=== PATIENT | male | born 1970 | race Caucasian/White ===

== ENCOUNTER 2016-11-15 21:56 | Inpatient (IN) | payer SELFPAY ==
[2016-11-16] MEDS ORDERED: NS 0.9% 1000 ML* 1,000 ML IV SCH (02:00)
[2016-11-16] MEDS ORDERED: cefTRIAXone VIAL(*) 1,000 MG in NS 0.9% 50 ML* 50 ML IVPB SCH (02:00)
[2016-11-16] MEDS ORDERED: HYDROmorphone* 1 MG/ML 1 ML SYR IV ONE (03:18)
[2016-11-16] MEDS: HYDROmorphone* 1 MG/ML 1 ML SYR ONE ×2 (03:21→05:50)
[2016-11-16] MEDS ORDERED: Vancomycin per Pharmacy* NOTE FOLLOW UP PRN (06:10)
[2016-11-16] MEDS ORDERED: Vancomycin(*) 2,000 MG in NS 0.9% 500 ML BAG* 500 ML IVPB ONE (06:30)
[2016-11-16 07:48] LABS: Albumin 3.3 g/dL (3.2-5.2); BUN/Creatinine Ratio 14.9 (8-20); Calcium 8.4 mg/dL (8.6-10.3); EGFR African American 82.7 (>60); EGFR Non-African American 64.3 (>60); Potassium 3.8 mmol/L (3.5-5.0); Total Bilirubin 1.2 mg/dL (0.2-1.0); Total Protein 6.3 g/dL (6.4-8.9)
[2016-11-16 08:09] LABS: Hematocrit 40 % (42-52); Hemoglobin 13.6 g/dl (14.0-18.0); Mean Corpuscular HGB Conc 34 g/dl (31-36); Mean Corpuscular Hemoglobin 27 pg (27-31); Mean Corpuscular Volume 80 fL (80-94); Mean Platelet Volume 11 um3 (7.4-10.4); Red Blood Count 4.96 10^6/ul (4.0-5.4); Red Cell Distribution Width 14 % (10.5-15); White Blood Count 11.3 10^3/ul (3.5-10.8)
[2016-11-16 08:14] LABS: Add Diff/Slide Review? Slide Review Added; Comments Flag Yes
[2016-11-16] MEDS: Ketorolac INJ* 15 MG/ML 1 ML VIAL IV PUSH PRN ×2 (09:40→22:28)
[2016-11-16 10:28] LABS: Erythrocyte Sed Rate 42 mm/Hr (0-14)
[2016-11-16] MEDS: Acetaminophen TAB* 325 MG PO PRN ×2 (10:49→23:42)
--- NOTE | 2016-11-16 11:23 | HP ---
HISTORY AND PHYSICAL: DATE OF ADMISSION: 11/16/2016. PCP: Dr. Geovanni Pichardo. CHIEF COMPLAINT: Knee pain. HISTORY OF PRESENT ILLNESS: The patient is a 46-year-old, who said 2 days ago, he felt like he had a cold or the flu. He had fevers and chills, vomiting and diarrhea, and body aches. That seemed to get better but then his left knee started hurting the next day yesterday. He could not put any weight on and it was swollen. He denies any trauma to the area. He has never had trouble with this before. Last night, he could not even stand on it because of the pain. Also, on his right foot, he thought he stubbed his toes because his toes were swollen. Then they burst and blood came out, but he noticed no purulent discharge. He finally came to the ED at [place] because of the increased pain in his left knee. He also developed fevers and chills. At the [place] ED, he was evaluated and also had a tap of his left knee which showed yellow fluid with some white pieces in it. PAST MEDICAL HISTORY: Significant only for an SBO, appendectomy, hernia repair , and his right leg was broken with subsequent surgery. MEDICATIONS: He is on no medications. ALLERGIES: He has no known drug allergies. FAMILY HISTORY: His mother is alive at 74, had breast cancer, hypertension, and cellulitis. Father at 82 of diabetes. SOCIAL HISTORY: No tobacco, alcohol, or recreational drug use. 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 He is not . He has 2 children. His children, Zoya and Quoc Kent, are his healthcare proxies. REVIEW OF SYSTEMS: A 14-point review of systems was completed with the patient. All pertinent positives and negatives are in the history of present illness, otherwise is negative. PHYSICAL EXAMINATION GENERAL: Pleasant gentleman, lying in bed, in no acute distress. VITAL SIGNS: Heart rate is 76 beats per minute, temperature 97.9 degrees, pulse ox 97%, and blood pressure 149/90. HEENT: Normocephalic, atraumatic. Pupils equal, round, and reactive to light. Moist mucous membranes. Poor dentition. NECK: Supple. No JVD, bruits, palpable thyroid, or lymphadenopathy. CHEST: Clear to auscultation and percussion bilaterally. CARDIOVASCULAR: S1 and S2 appreciated. ABDOMEN: Positive bowel sounds in all 4 quadrants. Soft, nontender, nondistended. EXTREMITIES: No cyanosis or clubbing. He has got bilateral edema. His left knee is swollen, extraordinarily tender, and warm, but no erythema. His right lower extremity from the lower leg to the foot is swollen, erythematous, and tender, and warm. NEURO: He is alert and oriented x3. He moves all extremities. SKIN: Other than the aforementioned problems in his legs, no distinct rashes or abnormalities. DIAGNOSTIC STUDIES/LAB DATA: Chemistry: Sodium is 134, potassium 3.5, chloride 97, CO2 24, BUN 21, creatinine 1.5, glucose is 119. Alk phos is 83. White count 9.69, hemoglobin 15.1, hematocrit 43.1, platelets are 115. Lyme titer is pending. Results of left knee arthrocentesis to be followed upon. ASSESSMENT AND PLAN: 1. Sepsis secondary to possibly septic arthritis or barely cellulitis. The patient received Rocephin in the ER at [place]. We will continue, but we will add vancomycin too. Await results of tap at [place]. Tylenol and/or Dilaudid for pain. He may require Infectious Disease and/or Ortho input as well. I will order an erythrocyte sedimentation rate. 2. FEN. Regular diet. 3. DVT prophylaxis. Heparin subcu. 4. The patient is a full code. TIME SPENT: Over 75 minutes was spent on this H and P; more than 40 minutes of which was spent in direct [id number] contact with the patient in evaluation, physical exam, counseling, and coordination of care. CC: Dr. Geovanni Pichadro* [id number]/[facility] #: [id number] [facility]
[2016-11-16] MEDS ORDERED: EPINEPHrine AMP 1 MG/ML ONE (13:01)
[2016-11-16] MEDS ORDERED: Bupivacaine 0.5% W/EPI SDV* 30 ML VIAL ONE (13:01)
[2016-11-16] MEDS ORDERED: Heparin VIAL(*) 5000 UNITS/ML VIAL (FIVE THOUSAND) SUBCUT SCH (14:00)
--- NOTE | 2016-11-16 14:50 | PN ---
Subjective Date of Service: 11/16/16 Interval History: HOSPITALIST PROGRESS NOTE Patient seen and examined at bedside. He feels better today, but still has severe pain on his left knee. Right foot still swollen and red, but less painful. Family History: Unchanged from Admission Social History: Unchanged from Admission Past Medical History: Unchanged from Admission Objective Active Medications: Acetaminophen (Tylenol Tab*) 650 mg PO Q4H PRN PRN Reason: Pain or fever Last Admin: 11/16/16 10:49 Dose: 650 mg Ceftriaxone Sodium 1,000 mg/ (Sodium Chloride) 50 mls @ 200 mls/hr IVPB 2000 BRUNO Sodium Chloride (Ns 0.9% 1000 Ml*) 1,000 mls @ 150 mls/hr IV PER RATE BRUNO Vancomycin HCl 1,000 mg/ (Sodium Chloride) 250 mls @ 166.667 mls/hr IVPB Q6H BRUNO Ketorolac Tromethamine (Toradol Inj*) 15 mg IV PUSH Q6H PRN PRN Reason: PAIN Last Admin: 11/16/16 09:40 Dose: 15 mg Pharmacy Consult (Vancomycin Per Pharmacy*) 1 note FOLLOW UP . PRN PRN Reason: PER PROTOCOL Pharmacy Profile Note (Vancomycin Trough Check) 1 note FOLLOW UP 1000 ONE Stop: 11/17/16 10:01 Vital Signs 11/16/16 11/16/16 11/16/16 07:24 08:00 11:23 Temperature 98.8 F 98.8 F Pulse Rate 79 73 Respiratory 18 18 18 Rate Blood Pressure 139/80 127/72 (mmHg) O2 Sat by Pulse 99 96 Oximetry Oxygen Devices in Use Now: None Appearance: Pleasant middle aged male sitting up in a recliner in [facility]. Eyes: No Scleral Icterus Ears/Nose/Mouth/Throat: Mucous Membranes Moist Neck: Trachea Midline Respiratory: Symmetrical Chest Expansion and Respiratory Effort, Clear to Auscultation Cardiovascular: NL Sounds; No Murmurs; No JVD, RRR Abdominal: NL Sounds; No Tenderness; No Distention Extremities: - - Right foot edema and ertyhema reaching up to ankle are, where he has an old surgical scar. Neurological: Alert and Oriented x 3, NL Muscle Strength and Tone Lines/Tubes/Other Access: Clean, Dry and Intact Peripheral IV Nutrition: Taking PO's Result Diagrams: 11/16/16 05:14 04/20/17 05:14 Assess/Plan/Problems-Billing Assessment: Mr. Kent is a 46yo M with PMH of obesity who presented to ED at [facility] with c/o right foot/left knee edema and pain, found to have right foot cellulitis and possible left knee septic arthritis. - Patient Problems (1) Sepsis Comment: - Met sepsis criteria with fever and tachycardia. - Source is right foot cellulitis and possible left knee septic arthritis. (2) Arthritis of left knee Comment: - Unfortunately, knee fluid clotted, so lab cannot perform cell count, but smear showed neutrophil predominance and Gram positive cocci. - Continue Ceftriaxone and Vancomycin. - Case d/w Ortho (Dr. Trejo) - plan to take to OR later today. - Patient has no comorbidities, no c/o chest pain or dyspnea. He's medically optimized for procedure. (3) Cellulitis of right foot Comment: - Continue Vanco and Ceftriaxone. - ID consult requested. (4) Hyperglycemia Comment: - Check A1c. (5) DVT prophylaxis Comment: - SQ heparin on hold for surgery later today. (6) Full code status Status and Disposition: Inpatient.
--- NOTE | 2016-11-16 15:31 | CONS ---
CONSULTATION REPORT: DATE OF CONSULT: 11/16/16 CONSULTING SERVICE: Infectious Disease. REQUESTING PHYSICIAN: Dr. Boo. REASON FOR CONSULT: Right foot cellulitis, left knee effusion, and pain. IMPRESSION: 1. Right foot cellulitis arising from the second toe, no recent injury, and there is no wound there. It was up through the lower leg and is in fact improved since starting IV antibiotics last night. There is underlying right ankle fixation hardware but there is no ulceration or wound associated with the ankle and he has not had recurrent infections of the ankle in the past, so I think it is unlikely the hardware is involved. This is likely a streptococcal infection, though staphylococcus is possible too. 2. Left knee effusion, severe pain with weightbearing and range of motion. Differential diagnosis includes hematogenous spread and seeding and subsequent septic joint versus gout or pseudogout as suggested by Dr. Boo. He has had no recent knee trauma or falls. 3. Morbid obesity. 4. Thrombocytopenia. 5. Anemia, mild. RECOMMENDATION: Continue vancomycin goal trough 15 to 20 and ceftriaxone which we will increase to 2 g a day given his size. He has had aspiration of the left knee and the fluid parameters are all pending. If there is evidence of crystal disease, he may need a steroid injection. If there is evidence of infection or very high white cell count without crystals, we would need to have orthopedic exam for consideration of I and D. HISTORY OF PRESENT ILLNESS: This is a 46-year-old man admitted with right foot infection and left knee pain. He was well until earlier in the week. He developed fevers, chills, sweats, and loss of appetite, and then started to get pain in his right second toe, which swelled and spread up the foot and then started to include the third toe, it spread up through the mid calf and a day or so later, he developed left knee pain which over the last 3 days had gotten much worse. He stayed to the point that is very painful to put weight on it, so he went to the ER last night at [place]. He was started on ceftriaxone. Because of concern for septic joint, he was transferred here and the knee was aspirated before he left and the fluid has made it, so here now is being analyzed by the lab which is still pending. He has had no fevers here and he is hemodynamically stable. He says the swelling, redness, and pain in the right foot is getting better. The left knee pain is unchanged, though hurts to bear weight or flex or extend his knee, though it was a little more comfortable extended. There is no pain going up his calf. He still feels sweats and decreased appetite. He has no back pain and no other joints are bothering. He has no hardware present other than the right ankle fixation hardware. About 2 years ago, he had cellulitis of the right foot and no other joint or skin infections. PAST MEDICAL HISTORY: 1. Right ankle tibia-fibula fracture, status post open reduction internal fixation in the distant past. 2. History of a right foot cellulitis. 3. Obesity. MEDICATIONS: 1. Tylenol. 2. Dilaudid. 3. Ketorolac. 4. Heparin subcutaneous injection. 5. Vancomycin. 6. Ceftriaxone 1 g daily. ALLERGIES: No known drug allergies. FAMILY HISTORY: No recurrent infections. SOCIAL HISTORY: He lives in [facility]. 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 No travel, no sick contacts, no trauma at work. REVIEW OF SYSTEMS: Full review of systems was negative except as noted above. PHYSICAL EXAM: Vital Signs: Temperature is 37, heart rate 80, respiratory rate 18, blood pressure 140/80, O2 sat 99% on room air. General: He is awake, non- distressed. Neurologic: Oriented x3. Follows all commands. Moves all of his extremities. HEENT: There is no conjunctival hemorrhage. Oropharynx without lesions. Neck is supple without nuchal rigidity. Lymph Nodes: There is no cervical, supraclavicular, inguinal, axillary, or epitrochlear lymphadenopathy. Heart has regular rate and rhythm without murmurs, rubs, or gallops. Lungs are clear to auscultation bilaterally. Abdomen: Soft, nontender, nondistended. Skin: There is no splinter hemorrhage. The right foot , there is faint edema from the ankle down through to the toes with edema of the second, third toes through the foot and lower leg. There is no tenderness, crepitus, or fluctuance. There is no wound. Musculoskeletal: Left knee, there is a large effusion. There is tenderness to superficial palpation. There is warmth. There is no erythema. There is decreased range of motion due to pain. There is no spine tenderness to palpation or other joint synovitis. DIAGNOSTIC STUDIES/LAB DATA: White blood cell count 11, hemoglobin 13, platelets 94. Creatinine is 1.2. ALT is 27, bilirubin is 1.2. Please see impressions and recommendations as outlined above which I have discussed with Dr. Boo. Thanks for asking me to see Donte in consultation. [id number]/[facility] #: [id number] MTDD
[2016-11-16] MEDS: Vancomycin(*) 1,000 MG in NS 0.9% 250 ML* 250 ML IVPB SCH ×2 (16:15→23:15)
[2016-11-16] MEDS ORDERED: KETAMINE HCL* 50 MG/ML 10 ML VIAL ONE (16:31)
[2016-11-16] MEDS ORDERED: fentaNYL* 50 MCG/ML 5 ML VIAL (250 MCG VIAL) ONE (16:31)
[2016-11-16] MEDS ORDERED: Midazolam* 1 MG/ML 5 ML VIAL (5 MG) ONE (16:31)
[2016-11-16] MEDS ORDERED: fentaNYL* 50 MCG/ML 2 ML VIAL (100 MCG VIAL) IV PRN (17:05)
[2016-11-16] MEDS ORDERED: oxyCODONE/Acetamin 5/325 MG* TAB PO PRN (17:05)
[2016-11-16] MEDS ORDERED: Morphine INJ* 2 MG/ML 1 ML SYRINGE IV PRN (17:05)
[2016-11-16] MEDS ORDERED: PROCHLORPERAZINE INJ 5 MG/ML 2 ML VIAL IV PRN (17:05)
[2016-11-16] MEDS ORDERED: Propofol* 10 MG/ML 20 ML BTL IV PUSH ONE (17:38)
[2016-11-16] MEDS ORDERED: Lidocaine 2% PF* 10 ML AMP ONE (17:38)
[2016-11-16] MEDS ORDERED: Phenylephrine INJ* 10 MG/ML 1 ML VIAL (10 MG) ONE (17:38)
[2016-11-16] MEDS ORDERED: Succinylcholine* 20 MG/ML 10 ML VIAL ONE (17:38)
[2016-11-16] MEDS ORDERED: PROCHLORPERAZINE INJ 5 MG/ML 2 ML VIAL ONE (17:38)
[2016-11-16] MEDS ORDERED: Ondansetron INJ* 2 MG/ML VIAL ONE (17:38)
[2016-11-16] MEDS: NS 0.9% 1000 ML* 1,000 ML IV SCH (22:18)
[2016-11-16] MEDS: cefTRIAXone VIAL(*) 1,000 MG in NS 0.9% 50 ML* 50 ML IVPB SCH (22:32)
[2016-11-17] MEDS: Vancomycin(*) 1,000 MG in NS 0.9% 250 ML* 250 ML IVPB SCH ×2 (04:13→10:30)
[2016-11-17 06:00] LABS: Comments Flag Yes; Hematocrit 37 % (42-52); Hemoglobin 12.5 g/dl (14.0-18.0); Mean Corpuscular HGB Conc 33 g/dl (31-36); Mean Corpuscular Hemoglobin 27 pg (27-31); Mean Corpuscular Volume 81 fL (80-94); Mean Platelet Volume 10 um3 (7.4-10.4); Red Blood Count 4.58 10^6/ul (4.0-5.4); Red Cell Distribution Width 14 % (10.5-15); White Blood Count 10.6 10^3/ul (3.5-10.8)
[2016-11-17 06:01] LABS: Add Diff/Slide Review? Slide Review Added
[2016-11-17 06:19] LABS: BUN/Creatinine Ratio 15.8 (8-20); C Reactive Protein 227.78 mg/L (< 5.00); EGFR African American 83.5 (>60); EGFR Non-African American 64.9 (>60); Potassium 3.6 mmol/L (3.5-5.0)
[2016-11-17 06:39] LABS: Erythrocyte Sed Rate 65 mm/Hr (0-14)
[2016-11-17] MEDS: Ketorolac INJ* 15 MG/ML 1 ML VIAL IV PUSH PRN ×2 (08:16→17:18)
[2016-11-17] MEDS: NS 0.9% 1000 ML* 1,000 ML IV SCH ×2 (08:31→17:09)
--- NOTE | 2016-11-17 09:00 | OP ---
OPERATIVE REPORT: DATE OF OPERATION: 11/16/16 - inpatient, MED 413-02 DATE OF : 68 SURGEON: Geovanni Trejo MD CHIEF GROWTH OFFICER: CHAUNCEY Enrique ANESTHESIOLOGIST: Dr. Asif Drake. ANESTHESIA: General anesthesia, local anesthesia. PRE-OP DIAGNOSIS: Left knee joint infection. POST-OP DIAGNOSES: 1. Left knee joint infection. 2. Medial meniscal tear. OPERATIVE PROCEDURES: 1. Arthroscopic irrigation and debridement, left knee. 2. Arthroscopic synovectomy, complete, left knee. 3. Left knee arthroscopic partial medial meniscectomy. ANTIBIOSIS: Vancomycin 1 g, was on schedule, just prior to procedure. The patient also receiving ceftriaxone, but not immediately perioperatively. IV FLUIDS: See Anesthesia note. COMPLICATIONS: None. ESTIMATED BLOOD LOSS: Minimal. TOURNIQUET TIME: 67 minutes at 300 mmHg. SPECIMEN: Aerobic, anaerobic culture. IMPLANTS: 1 SHERRY tube, 7-Greenlandic, 7 mm. 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 The patient states that he developed some swelling, erythema, tenderness, and pain about the right second toe 3 days prior to the procedure on 11/13/16. That pain, swelling, and erythema in turn spread to the third and fourth toes. He noted some erythema and swelling about the foot and distal lower leg as well. On Sunday, approximately 48 hours prior to the operative procedure or just more than 48 hours, the patient noted some left knee pain. The patient had no prior history of left knee pain and the left knee pain was quite debilitating. His described him crouched over in a position in pain. The patient had significant pain with weightbearing and moving the left knee. It was much worse than any pain he had felt with fractures in the past. There was no specific trigger injury to start the pain. The patient went to the emergency department at [facility] where his left knee was aspirated yesterday, 11/15/16. I was consulted by the hospitalist service this afternoon. They told me about the aspiration at [facility] and we tracked down the results of that. The results were the Gram stain demonstrating gram-positive cocci. Due to some problems with the sample, a cell count was not established, but the neutrophil percentage was 92%. Crystals were negative. From clinic, I booked the patient for an operative arthroscopic irrigation and debridement of left knee for presumptive left knee joint infection. The patient had been started by the hospitalist service on vancomycin and ceftriaxone for his cellulitis and presumptive left knee joint infection. They stated that the appearance of the right foot and ankle cellulitis improved on these antimicrobials. When I examined the patient preoperatively, he had a significant effusion left knee. An arc of range of motion of only 15 degrees or 10 degrees provoked significant pain. Neurovascularly intact distally. Contralateral right lower extremity did show some swelling of the second, third, and fourth toes and some erythema and tenderness of the foot. Less so of the ankle and distal lower leg , as if the erythema had retreated from those parts of his lower extremity. The patient opted for surgical management. DESCRIPTION OF PROCEDURE: Preoperative written consent. Operative extremity was marked in preoperative holding. The patient was taken back to the operating room, placed supine on operating table. The patient was intubated. A left hemipelvis bump was placed and a lateral post was placed. Foot post was placed to keep the knee at 90 degrees of flexion as needed. The foot of the bed remained elevated. The right lower extremity was prepped and draped. Surgical time-out was performed. Esmarch was applied and the tourniquet was elevated to 300 mmHg. Anterolateral knee arthroscopy portal was established under direct visualization. Trocar was removed from cannula and much yellow purulent-looking material emanated from the knee. I took cultures of this fluid and sent them for analysis. I then entered an arthroscope and commenced a diagnostic arthroscopy. There was synovitis and pillowy synovium about the suprapatellar space, certainly more than seen in an uninfected knee. Articular cartilage and the patellofemoral compartment was remarkable for fraying of the undersurface of the patella. Under direct visualization, I established an anteromedial knee arthroscopy portal. I entered an arthroscopic shaver and then a Vapor to debride extensively synovium throughout the suprapatellar pouch. Also went into the gutters a bit at this time, medial and lateral. Then I arthroscoped the knee in 45 degrees of flexion. This enabled me to get down into the intercondylar notch and visualized a significant amount of synovitic tissue about it anteriorly. Arthroscopic shaver was used. As I had above, I worked through first the anteromedial and then through the anterolateral compartment to debride this synovitis. ACL and PCL were intact. Debrided the ligamentum mucosum and synovitis anterior to them. I debrided significant anterior tissue, so that afterwards I could well visualize the anterior horns of the medial and lateral menisci. I visualized the medial compartment. There were some grade 2 and 3 changes throughout the medial compartment. A large radial tear in the body of the medial meniscus was well visualized and was debrided back to a stable rim. Much fluid pumped through the leg and much shaving done to improve the quality of the image part of the procedure. I then moved to the lateral compartment that was remarkable for a small grade 4 punctate chondral lesion about the lateral femoral condyle anteriorly. No lateral meniscal tear. I returned to the suprapatellar pouch and debrided through both the anteromedial and anterolateral portals and debrided down into the gutters. Almost 13 L had been cycled through the knee, placed a SHERRY drain, a 7 mm 7-Greenlandic through a superolateral portal. Of note, I had created a second anteromedial portal while arthroscoping the knee. Attached SHERRY drain. Sutured it in place with a 4-0 monofilament permanent suture. I closed the 3 arthroscopy skin incision portals with [id number] stitches using 4-0 monofilament permanent suture; 4x4's, ABD, sterile Webril, and 2 Scott bandages. Tourniquet was elevated. It should be noted a total of 13 L of fluid were passed through the knee during this procedure. DISPOSITION: The patient will be returned to the floor and to the hospitalist service. He will be kept on vancomycin and ceftriaxone until Gram stains, cultures, and cultural sensitivities allows to narrow the antibiotic activity. The patient is on heparin subcu for DVT prophylaxis and is receiving appropriate pain control. Orthopedic service will follow him, remove SHERRY drain when output declines and will use clinical exam, history, and any relative lab work to determine if a second knee arthroscopy is required. [id number]/[facility] #: [id number] MTDD
[2016-11-17] MEDS ORDERED: Vancomycin Trough Check NOTE FOLLOW UP ONE (10:00)
--- NOTE | 2016-11-17 14:59 | PN ---
Subjective Date of Service: 11/17/16 Interval History: HOSPITALIST PROGRESS NOTE Patient seen and examined at bedside. He feels very tired today as he did not have a good night of sleep, but states his knee pain is much improved. Denies nausea or vomiting. Family History: Unchanged from Admission Social History: Unchanged from Admission Past Medical History: Unchanged from Admission Objective Active Medications: Acetaminophen (Tylenol Tab*) 650 mg PO Q4H PRN PRN Reason: Pain or fever Last Admin: 11/16/16 23:42 Dose: 650 mg Ceftriaxone Sodium 1,000 mg/ (Sodium Chloride) 50 mls @ 200 mls/hr IVPB 2000 [facility] Last Admin: 11/16/16 22:32 Dose: 200 mls/hr Sodium Chloride (Ns 0.9% 1000 Ml*) 1,000 mls @ 150 mls/hr IV PER RATE [facility] Last Admin: 11/17/16 08:31 Dose: 150 mls/hr Ketorolac Tromethamine (Toradol Inj*) 15 mg IV PUSH Q6H PRN PRN Reason: PAIN Last Admin: 11/17/16 08:16 Dose: 15 mg Vital Signs 11/16/16 11/17/16 11/17/16 23:40 03:10 07:37 Temperature 99.9 F 98.0 F 98.7 F Pulse Rate 80 69 78 Respiratory 16 18 16 Rate Blood Pressure 123/74 120/67 128/69 (mmHg) O2 Sat by Pulse 96 100 99 Oximetry Oxygen Devices in Use Now: None Appearance: Middle aged male sitting up in a recliner in [facility]. Eyes: No Scleral Icterus Ears/Nose/Mouth/Throat: Mucous Membranes Moist Neck: Trachea Midline Respiratory: Symmetrical Chest Expansion and Respiratory Effort, Clear to Auscultation Cardiovascular: NL Sounds; No Murmurs; No JVD, RRR Abdominal: NL Sounds; No Tenderness; No Distention Extremities: - - Right food edema and erythema are much improved today. Left leg is Scott wrapped from ankle to thigh, with cryo unit over his knee. Neurological: Alert and Oriented x 3, NL Muscle Strength and Tone Lines/Tubes/Other Access: Clean, Dry and Intact Peripheral IV Nutrition: Taking PO's Result Diagrams: 11/17/16 05:48 11/17/16 05:48 Assess/Plan/Problems-Billing Assessment: Mr. Kent is a 46yo M with PMH of obesity who presented to ED at [facility] with c/o right foot/left knee edema and pain, found to have right foot cellulitis and possible left knee septic arthritis. - Patient Problems (1) Sepsis Comment: - Met sepsis criteria with fever and tachycardia. - Source is right foot cellulitis and possible left knee septic arthritis. (2) Arthritis of left knee Comment: - S/p left knee wash out with Dr. Trejo on 11/16/16. - Continue Ceftriaxone and Vancomycin. - Follow synovial fluid cultures. (3) Cellulitis of right foot Comment: - Continue Vanco and Ceftriaxone. - ID consult appreciated. (4) Hyperglycemia Comment: - A1c is 5.7. (5) DVT prophylaxis Comment: - SQ heparin. (6) Full code status Status and Disposition: Inpatient.
--- NOTE | 2016-11-17 15:29 | PN ---
Progress Note - Progress Note SOAP: Subjective: DOS: 11/17/16 CC: septic knee HPI: 46 year old man with right foot cellulitis and left knee severe pain, s/p arthroscopic I&D. Pain 10, improved overall. Fever resolved. Objective: [] Vital Signs Temp 37.1 C 11/17/16 07:37 Pulse 78 11/17/16 07:37 Resp 16 11/17/16 08:00 BP 128/69 11/17/16 07:37 Pulse Ox 99 11/17/16 07:37 Intake & Output 11/16/16 11/17/16 11/17/16 18:59 06:59 18:59 Intake Total 2954 059 9841 Output Total 200 70 550 Balance 2600 143 9656 Intake: IV Fluids 900 595 920 NS (0.9%) 595 920 lr 900 IVPB 321 NS (0.9%) 321 Oral 360 0 360 Output: SHERRY #1 70 50 Urine 200 0 500 Other: Estimated Void Medium # Bowel Movements 0 0 # Voids 1 1 Gen:Awake, no distress Heart:RRR no murmur MSK: R foot mild erythema, no fluctuance; 2 and 3 toe edema, no wound Left knee wrapped Laboratory Results - last 24 hr 11/16/16 11/17/16 11/17/16 05:14 05:48 05:48 WBC 10.6 RBC 4.58 Hgb 12.5 L Hct 37 L MCV 81 MCH 27 MCHC 33 RDW 14 Plt Count 93 L MPV 10 Neut % (Auto) 78.3 Lymph % (Auto) 9.8 L Esmeralda % (Auto) 11.4 H Eos % (Auto) 0.1 Baso % (Auto) 0.4 Absolute Neuts (auto) 8.3 H Absolute Lymphs (auto) 1.0 Absolute Monos (auto) 1.2 H Absolute Eos (auto) 0 Absolute Basos (auto) 0 Absolute Nucleated RBC 0.01 Nucleated RBC % 0.1 ESR 65 H Hem Pathologist Commnt Sodium 136 Potassium 3.6 Chloride 105 Carbon Dioxide 28 Anion Gap 3 BUN 19 Creatinine 1.20 H Est GFR ( Amer) 83.5 Est GFR (Non-Af Amer) 64.9 BUN/Creatinine Ratio 15.8 Glucose 102 H Hemoglobin A1c 5.7 Calcium 8.0 L C-Reactive Protein 227.78 H Vancomycin Trough 11/17/16 09:23 WBC RBC Hgb Hct MCV MCH MCHC RDW Plt Count MPV Neut % (Auto) Lymph % (Auto) Esmeralda % (Auto) Eos % (Auto) Baso % (Auto) Absolute Neuts (auto) Absolute Lymphs (auto) Absolute Monos (auto) Absolute Eos (auto) Absolute Basos (auto) Absolute Nucleated RBC Nucleated RBC % ESR Hem Pathologist Commnt Sodium Potassium Chloride Carbon Dioxide Anion Gap BUN Creatinine Est GFR ( Amer) Est GFR (Non-Af Amer) BUN/Creatinine Ratio Glucose Hemoglobin A1c Calcium C-Reactive Protein Vancomycin Trough 11.5 Assessment: 1. Grp G Strep septic left knee, BC neg but due to hematogenous spread from his right foot cellulitis which is improving Plan: 1 ceftriaxone 2 gm daily, roverto crespo (ordered), we discussed 4 weeks IV abx and will work on arranging that in setting of no health insurance. Discussed with Dr Chaves
[2016-11-17] MEDS: cefTRIAXone VIAL(*) 1,000 MG in NS 0.9% 50 ML* 50 ML IVPB SCH (19:40)
[2016-11-17] MEDS: Heparin VIAL(*) 5000 UNITS/ML VIAL (FIVE THOUSAND) SUBCUT SCH (21:23)
--- NOTE | 2016-11-17 21:23 | PN ---
Progress Note - Progress Note SOAP: Subjective: Doing well. Greatly decreased pain in L knee. " Pain pill" once every 10 hours. PT did not work with the patient today. Patient reiterates that this L knee pain started Sunday afternoon, just over 48 hours prior to his arthroscopic I&D. Per Dr. Ackerman, L knee aspirate from [place] grew Group G Strep. Objective: LLE: - GISELLA bandage, SHERRY drain, NVID - Pain with PROM L knee more than 10-15 degrees Microbiology 11/16/16 17:46 Knee Left Skin and Soft Tissue MRSA/MSSA (PCR - Final 11/16/16 17:46 Knee Left Gram Stain - Final Mrsa Negative S.aureus Negative Selected Entries 11/17/16 19:54 Temperature 99.2 F Pulse Rate 80 Respiratory 24 Rate O2 Sat by Pulse 94 Oximetry Laboratory Tests 11/16/16 11/17/16 11/17/16 05:14 05:48 05:48 WBC 11.3 H 10.6 ESR 42 H 65 H C-Reactive Protein 227.78 H Assessment: POD 1 L knee arthroscopic I&D for Group G strep infection of L knee spread from R foot & ankle cellulitus Plan: - Ceftriaxone IV per ID - Physical therapy with ROM and PT, WBAT LLE - NPO after midnight. I will examine the patient in the AM. If his knee is not improving, I would consider a 2nd I&D
[2016-11-18] MEDS: NS 0.9% 1000 ML* 1,000 ML IV SCH ×2 (00:02→06:26)
[2016-11-18] MEDS: Ketorolac INJ* 15 MG/ML 1 ML VIAL IV PUSH PRN ×3 (01:43→20:06)
[2016-11-18] MEDS: Heparin VIAL(*) 5000 UNITS/ML VIAL (FIVE THOUSAND) SUBCUT SCH ×3 (06:01→23:16)
[2016-11-18 07:49] LABS: Hematocrit 37 % (42-52); Hemoglobin 12.4 g/dl (14.0-18.0); Mean Corpuscular HGB Conc 34 g/dl (31-36); Mean Corpuscular Hemoglobin 28 pg (27-31); Mean Corpuscular Volume 82 fL (80-94); Mean Platelet Volume 10 um3 (7.4-10.4); Red Blood Count 4.51 10^6/ul (4.0-5.4); Red Cell Distribution Width 14 % (10.5-15); White Blood Count 8.9 10^3/ul (3.5-10.8)
[2016-11-18 07:59] LABS: C Reactive Protein 182.73 mg/L (< 5.00); Calcium 8.1 mg/dL (8.6-10.3); EGFR African American 95.3 (>60); EGFR Non-African American 74.1 (>60); Potassium 3.9 mmol/L (3.5-5.0)
--- NOTE | 2016-11-18 09:37 | PN ---
Progress Note - Progress Note SOAP: Subjective: Pt. OOB to chair with continued complaints of right knee pain Objective: Vital Signs Temp Pulse Resp BP Pulse Ox 97.3 F 80 16 142/91 94 11/18/16 07:30 11/18/16 07:30 11/18/16 07:30 11/18/16 07:30 11/18/16 07:30 Laboratory Last Values WBC 8.9 10^3/ul (3.5-10.8) 11/18/16 07:15 RBC 4.51 10^6/ul (4.0-5.4) 11/18/16 07:15 Hgb 12.4 g/dl (14.0-18.0) L 11/18/16 07:15 Hct 37 % (42-52) L 11/18/16 07:15 MCV 82 fL (80-94) 11/18/16 07:15 MCH 28 pg (27-31) 11/18/16 07:15 MCHC 34 g/dl (31-36) 11/18/16 07:15 RDW 14 % (10.5-15) 11/18/16 07:15 Plt Count 135 10^3/ul (150-450) L 11/18/16 07:15 MPV 10 um3 (7.4-10.4) 11/18/16 07:15 Neut % (Auto) 77.3 % (38-83) 11/18/16 07:15 Lymph % (Auto) 11.7 % (25-47) L 11/18/16 07:15 Wirt % (Auto) 10.4 % (1-9) H 11/18/16 07:15 Eos % (Auto) 0.4 % (0-6) 11/18/16 07:15 Baso % (Auto) 0.2 % (0-2) 11/18/16 07:15 Absolute Neuts (auto) 6.9 10^3/ul (1.5-7.7) 11/18/16 07:15 Absolute Lymphs (auto) 1.0 10^3/ul (1.0-4.8) 11/18/16 07:15 Absolute Monos (auto) 0.9 10^3/ul (0-0.8) H 11/18/16 07:15 Absolute Eos (auto) 0 10^3/ul (0-0.6) 11/18/16 07:15 Absolute Basos (auto) 0 10^3/ul (0-0.2) 11/18/16 07:15 Absolute Nucleated RBC 0 10^3/ul 11/18/16 07:15 Nucleated RBC % 0 11/18/16 07:15 ESR 65 mm/Hr (0-14) H 11/17/16 05:48 Hem Pathologist Commnt 11/17/16 05:48 INR (Anticoag Therapy) 1.10 (0.89-1.11) 11/16/16 05:14 APTT 30.2 seconds (26.0-36.3) 11/16/16 05:14 Sodium 138 mmol/L (133-145) 11/18/16 07:15 Potassium 3.9 mmol/L (3.5-5.0) 11/18/16 07:15 Chloride 108 mmol/L (101-111) 11/18/16 07:15 Carbon Dioxide 26 mmol/L (22-32) 11/18/16 07:15 Anion Gap 4 mmol/L (2-11) 11/18/16 07:15 BUN 16 mg/dL (6-24) 11/18/16 07:15 Creatinine 1.07 mg/dL (0.67-1.17) 11/18/16 07:15 Est GFR ( Amer) 95.3 (>60) 11/18/16 07:15 Est GFR (Non-Af Amer) 74.1 (>60) 11/18/16 07:15 BUN/Creatinine Ratio 15.0 (8-20) 11/18/16 07:15 Glucose 96 mg/dL (70-100) 11/18/16 07:15 Hemoglobin A1c 5.7 % (Less than 6.0) 11/16/16 05:14 Calcium 8.1 mg/dL (8.6-10.3) L 11/18/16 07:15 Total Bilirubin 1.20 mg/dL (0.2-1.0) H 11/16/16 05:14 AST 38 U/L (13-39) 11/16/16 05:14 ALT 27 U/L (7-52) 11/16/16 05:14 Alkaline Phosphatase 65 U/L (34-104) 11/16/16 05:14 C-Reactive Protein 182.73 mg/L (< 5.00) H 11/18/16 07:15 Total Protein 6.3 g/dL (6.4-8.9) L 11/16/16 05:14 Albumin 3.3 g/dL (3.2-5.2) 11/16/16 05:14 Globulin 3.0 g/dL (2-4) 11/16/16 05:14 Albumin/Globulin Ratio 1.1 (1-3) 11/16/16 05:14 Vancomycin Trough 11.5 mcg/mL 11/17/16 09:23 incision: c/d; drain intact with about 100cc PE:NVI Assessment: s/p arthroscopic I&D right knee Plan: 1) NPO- OR today for 2nd arthroscopic I &D 2) continue DVT prophylaxis 3) PT/OT-WBAT 4) Continue IV Abx per ID 5) hospitalist co-managing <Magnolia Gomez - Last Filed: 11/18/16 09:35> - Progress Note SOAP: Subjective: Pain is much improved compared with pre-op, but he still has L knee pain while resting in bed or in a chair. Pain is comparable to the level Sunday, when the symptoms started. Objective: LLE: - Inc c/d/i - Drain in place - Mild soft tissue swelling about knee, no severe effusion - Although patient was very slowly able to AROM 10-70, PROM of a 20-30 degree arc caused much pain SHERRY drain: 110 cc/ 24 hours serosanguinous Selected Entries 11/18/16 07:30 Temperature 97.3 F Pulse Rate 80 Respiratory 16 Rate Blood Pressure 142/91 (mmHg) O2 Sat by Pulse 94 Oximetry Laboratory Tests 11/17/16 11/18/16 11/18/16 05:48 07:15 07:15 WBC 8.9 C-Reactive Protein 227.78 H 182.73 H Assessment: POD 2 arthroscopic I&D L knee for Group G Strep knee joint infection, seeded from R foot & ankle cellulitis Plan: - To the OR today for repeat arthroscopic L knee I&D. 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 <Geovanni Trejo - Last Filed: 11/18/16 10:35>
[2016-11-18] MEDS ORDERED: ceFAZolin 1 GM in Dextrose (*) 0 GM/0 ML BAG IVPB ONE (10:43)
[2016-11-18] MEDS ORDERED: ceFAZolin 2 GM PREMIX(*) 2 GM/50 ML BAG IVPB ONE (10:46)
[2016-11-18] MEDS ORDERED: HYDROmorphone* 1 MG/ML 1 ML SYR ONE ×3 (10:49→13:20)
[2016-11-18] MEDS ORDERED: Midazolam* 1 MG/ML 2 ML VIAL (2 MG) ONE (10:49)
[2016-11-18] MEDS ORDERED: fentaNYL* 50 MCG/ML 2 ML VIAL (100 MCG VIAL) ONE ×2 (10:49→11:12)
[2016-11-18] MEDS ORDERED: Ketorolac INJ* 30 MG/ML 1 ML VIAL ONE (10:54)
[2016-11-18] MEDS ORDERED: Ondansetron INJ* 2 MG/ML VIAL ONE (10:54)
[2016-11-18] MEDS ORDERED: Propofol* 10 MG/ML 20 ML BTL IV PUSH ONE ×2 (10:54→11:12)
[2016-11-18] MEDS ORDERED: Lidocaine 2% PF * 5 ML VIAL ONE (10:54)
[2016-11-18] MEDS ORDERED: Bupivacaine 0.5% W/EPI SDV* 30 ML VIAL ONE (10:57)
[2016-11-18] MEDS ORDERED: Meperidine SYRINGE* 50 MG/ML ONE ×2 (11:27→13:20)
[2016-11-18] MEDS ORDERED: Ondansetron INJ* 2 MG/ML VIAL IV PRN (12:55)
[2016-11-18] MEDS ORDERED: Scopolamine 1.5 mg* PATCH TRANSDERM PRN (12:55)
[2016-11-18] MEDS ORDERED: PROCHLORPERAZINE INJ 5 MG/ML 2 ML VIAL IV PRN (12:55)
[2016-11-18] MEDS ORDERED: DiMENhydriNATE IV* 50 MG/ML VIAL IV PUSH PRN (12:55)
[2016-11-18] MEDS ORDERED: fentaNYL* 50 MCG/ML 2 ML VIAL (100 MCG VIAL) IV PRN (12:55)
--- NOTE | 2016-11-18 16:29 | PN ---
Subjective Date of Service: 11/18/16 Interval History: HOSPITALIST PROGRESS NOTE Patient seen and examined at bedside. He overall feels better. Right foot is much improved. Left knee pain is less intense than on admission, but grooving lathe tender. Family History: Unchanged from Admission Social History: Unchanged from Admission Past Medical History: Unchanged from Admission Objective Active Medications: Acetaminophen (Tylenol Tab*) 650 mg PO Q4H PRN PRN Reason: Pain or fever Last Admin: 11/16/16 23:42 Dose: 650 mg Heparin Sodium (Porcine) (Heparin Vial(*)) 5,000 units SUBCUT Q8HR [facility] Last Admin: 11/18/16 15:07 Dose: 5,000 units Ceftriaxone Sodium 1,000 mg/ (Sodium Chloride) 50 mls @ 200 mls/hr IVPB 2000 [facility] Last Admin: 11/17/16 19:40 Dose: 200 mls/hr Sodium Chloride (Ns 0.9% 1000 Ml*) 1,000 mls @ 150 mls/hr IV PER RATE [facility] Last Admin: 11/18/16 06:26 Dose: 150 mls/hr Cefazolin Sodium/Dextrose (Kefzol 1 Gm In Dextrose Duplex (*)) 1 gm in 50 mls @ 200 mls/hr IVPB Q8H [facility] Stop: 11/19/16 11:14 Ketorolac Tromethamine (Toradol Inj*) 15 mg IV PUSH Q6H PRN PRN Reason: PAIN Last Admin: 11/18/16 08:47 Dose: 15 mg Vital Signs 11/18/16 11/18/16 11/18/16 13:15 13:30 13:54 Temperature 97.7 F 97.6 F Pulse Rate 65 66 65 Respiratory 20 20 16 Rate Blood Pressure 118/77 127/85 119/67 (mmHg) O2 Sat by Pulse 94 92 92 Oximetry Oxygen Devices in Use Now: None Appearance: Pleasant gentleman lying in recliner in NAD. Eyes: No Scleral Icterus Ears/Nose/Mouth/Throat: Mucous Membranes Moist Neck: Trachea Midline Respiratory: Symmetrical Chest Expansion and Respiratory Effort, Clear to Auscultation Cardiovascular: NL Sounds; No Murmurs; No JVD, RRR Abdominal: NL Sounds; No Tenderness; No Distention Extremities: - - Right foot edema still present, but erythema is much improved. Left leg armando wrapped. Neurological: Alert and Oriented x 3, NL Muscle Strength and Tone Lines/Tubes/Other Access: Clean, Dry and Intact Peripheral IV Nutrition: Taking PO's Result Diagrams: 11/18/16 07:15 11/18/16 07:15 Assess/Plan/Problems-Billing Assessment: Mr. Kent is a 46yo M with PMH of obesity who presented to ED at [facility] with c/o right foot/left knee edema and pain, found to have right foot cellulitis and possible left knee septic arthritis. - Patient Problems (1) Sepsis Comment: - Met sepsis criteria with fever and tachycardia. - Source is right foot cellulitis and possible left knee septic arthritis. (2) Arthritis of left knee Comment: - S/p left knee wash out with Dr. Trejo on 11/16/16. - Plan to take back to OR today for another washout. - Culture growing group G streptococcus. - D/c Vancomycin and continue Ceftriaxone - will need 4-6 weeks of treatment. (3) Cellulitis of right foot Comment: - Continue Ceftriaxone. - ID consult appreciated. (4) Hyperglycemia Comment: - A1c is 5.7. (5) Obstructive sleep apnea Comment: - Patient was noted to snore and have periods of apnea while sleeping. - Overnight oxymetry confirms hypoxia. - Will need supplemental O2 while sleeping and sleep study as outpatient. (6) Morbid obesity Comment: - Would benefit of weight loss plan after discharge. (7) DVT prophylaxis Comment: - SQ heparin. (8) Full code status Status and Disposition: Inpatient.
[2016-11-18] MEDS: ceFAZolin 1 GM in Dextrose (*) 1 GM/50 ML BAG IVPB SCH (19:50)
[2016-11-18] MEDS: cefTRIAXone VIAL(*) 1,000 MG in NS 0.9% 50 ML* 50 ML IVPB SCH (20:09)
[2016-11-19] MEDS: NS 0.9% 1000 ML* 1,000 ML IV SCH (00:04)
[2016-11-19] MEDS: ceFAZolin 1 GM in Dextrose (*) 1 GM/50 ML BAG IVPB SCH ×2 (03:23→11:15)
--- NOTE | 2016-11-19 04:18 | OP ---
OPERATIVE REPORT: DATE OF OPERATION: 11/18/16 DATE OF : 68 SURGEON: Geovanni Trejo MD MACHINE CAGE MAKER: CHAUNCEY Francisco ANESTHESIOLOGIST: Ralph Fishman MD ANESTHESIA: General, local. PRE-OP DIAGNOSIS: Left knee joint infection. POST-OP DIAGNOSIS: Left knee joint infection. OPERATIVE PROCEDURE: 1. Arthroscopic irrigation and debridement, left knee. 2. Arthroscopic synovectomy, left knee. ANTIBIOSIS: Ancef 2 g IV. Ancef was given preoperatively. The patient is also on ceftriaxone for his known group G streptococcal infection. IV FLUIDS: 1500 cc normal saline. TOURNIQUET TIME: 57 minutes at 300 mmHg. ESTIMATED BLOOD LOSS: Minimal. COMPLICATIONS: None. IMPLANTS: None. SPECIMEN: Aerobic, anaerobic cultures x1, left knee joint fluid. 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 The patient was transferred to [facility] from [facility], where he was assessed as likely having a left knee joint infection and his left knee was aspirated. The patient was also noted to have right foot cellulitis. As a review, the patient states that his right foot and ankle symptoms started on 11/13/16. Principally, the patient developed some pain, swelling and blistering about the right second toe, which then spread to other toes and then erythema spread to the right foot and ankle. On 11/14/16, in the afternoon, the patient started developing left knee pain. From the until the , that knee pain became increasingly severe. The patient went to the [facility] on the and then the was transferred to [facility]. I met the patient after his admission on the . His exam and history were consistent with a left knee joint infection. His Gram stain from [facility]'s left knee aspirate showed gram-positive cocci and his cell count will not available because of specimen problem showed a left shift, 92% neutrophils. I took the patient to the operating room 2 days ago. There was pus in the left knee. There was synovitis noted. Although, there did not appear to be infiltration into the articular cartilage or any affected bone. I performed an aggressive synovectomy and put at least 12 L through the knee in that index procedure 2 days ago. After that index procedure, the patient's knee pain improved significantly. Aspirate results from [facility] eventually showed group G streptococcus and the patient was started on ceftriaxone after being initially treated with vancomycin. The patient's antibiosis has been managed to this point by the IT service. The patient's C-reactive protein was 227 on 11/17/16 that dropped to 182 on . The patient was afebrile. Vital signs stable with a normal white blood cell count. However, this morning, 2 days after his index knee scope, while the patient was improved, he still had left knee pain at resting either supine or sitting, and he had pain with passive or active range of motion of the left knee more than 20 degrees. Given the patient's young age, 46 and his having a symptomatic knee for just over 48 hours prior to this index irrigation debridement, the decision was made to take it back for a repeat irrigation and debridement, arthroscopic. It should also be noted that I placed a drain during the index procedure and that was still producing a significant volume of fluid. That volume of fluid was 110 mL in the 24 hours from yesterday morning until this morning. The patient agreed with repeat irrigation and debridement. DESCRIPTION OF PROCEDURE: Preoperative written consent was obtained. Operative extremity was marked in preoperative holding and date was also applied with initials. Reviewed benefits, risks and potential complications of the procedure thoroughly with the patient. The patient was taken back to the operating room, placed supine on operating room table. The patient was sedated and LMA was placed. A lateral post was applied to the table. Pump was placed under the left hemipelvis. Left proximal thigh tourniquet was placed, but not elevated. The drain in place was removed from the patient's left knee. The left lower extremity was prepped and draped. Surgical time-out was performed. Stitches were removed and the instruments were used to remove the stitches were not used in any of the remainder of the procedure. Esmarch was applied and the tourniquet was elevated to 300 mmHg. A curette was used to debride the subcutaneous tissue about the 3 arthroscopic portals used for the index case 2 days ago as well as for the skin opening for the drain. I then entered the arthroscope through the anterolateral knee arthroscopy portal created for the index procedure. After the cannula had been placed and before the arthroscope had been placed, mild amount of fluid was expressed from the knee and I obtained cultures on this, aerobic and anaerobic. Arthroscope was inserted. There was some fat and perhaps some tiny bit of synovium still remaining about the suprapatellar pouch. I entered the arthroscopic shaver and then a VAPR through the inferior anteromedial knee arthroscopy portal and did repeat debridement about the suprapatellar pouch. Painstakingly visualizing from anterolateral and then anteromedial, I debrided vigorously down to bone throughout the suprapatellar pouch as well as in the medial and lateral gutters. I debrided with the shaver some frayed tissue about the inferior surface of the patella as well. I then dropped down into the intercondylar notch and debrided some hematoma and some fat at synovium about the anterior aspect of the knee, debrided a bit more synovium about the medial and lateral aspects of the anterior part of the knee. Debrided some more synovium overlying the PCL. Viewed into the medial and lateral compartments, did not see any niduses of infection in either compartment. Debrided likely some unstable cartilage, focal about the lateral femoral condyle that had been noted in the prior procedure. Then, I entered and the outflow of cannula into a new superolateral portal. With inflow through my arthroscope and outflow through the outflow cannula, I proceeded to push an additional at least 6 L into the knee for a total use of 12 L of fluid to irrigate this infected joint with. After 12 L have been circulated through the knee, I removed the outflow cannula and placed a SHERRY through that site, it was a 7-Arabic 7 mm cannula. Visualized it entering the knee joint, hooked the SHERRY up to suction. Tied the drain into place with a 4-0 monofilament, nonabsorbable suture. Closed the three anteromedial and anterolateral knee arthroscopy skin portal incisions with 4-0 monofilament, nonabsorbable suture. I left the superolateral skin incision where the drain had been placed at the time of the index procedure, open. Before I sutured those incisions closed, I curetted the subcutaneous tissue about them again and I irrigated them from superficial. Placed a dressing consisting of 4x4s, ABD, sterile Webril, and then 2 Scott bandages. Then, I dropped the tourniquet. The patient was awakened and extubated and transferred to the PACU. DISPOSITION: The patient will be returned to the floor when medically stable. The patient will be weightbearing as tolerated with encouragement to ambulate, get out of bed and range that knee as much as possible. The patient will continue on ceftriaxone for the known group G strep infection. I also scheduled the patient for 3 doses of Ancef postoperatively. The patient is receiving DVT prophylaxis with heparin subcu and was admitted to the hospitalist service. The patient will have a drain in place and that will remain until outflow slows. We will continue to follow the resolution of the patient's infection based on his level of pain, his physical exam, and CRP and other markers, laboratory and vital signs, infection. [id number] #: [id number] MTDD
[2016-11-19] MEDS: Heparin VIAL(*) 5000 UNITS/ML VIAL (FIVE THOUSAND) SUBCUT SCH ×3 (05:29→22:11)
--- NOTE | 2016-11-19 07:15 | PN ---
Progress Note - Progress Note SOAP: Subjective: patient resting comfortably with improved pain Objective: Vital Signs Temp Pulse Resp BP Pulse Ox 98.3 F 72 16 175/96 96 11/19/16 03:57 11/19/16 03:57 11/19/16 03:57 11/19/16 03:57 11/19/16 03:57 Laboratory Last Values WBC 8.9 10^3/ul (3.5-10.8) 11/18/16 07:15 RBC 4.51 10^6/ul (4.0-5.4) 11/18/16 07:15 Hgb 12.4 g/dl (14.0-18.0) L 11/18/16 07:15 Hct 37 % (42-52) L 11/18/16 07:15 MCV 82 fL (80-94) 11/18/16 07:15 MCH 28 pg (27-31) 11/18/16 07:15 MCHC 34 g/dl (31-36) 11/18/16 07:15 RDW 14 % (10.5-15) 11/18/16 07:15 Plt Count 135 10^3/ul (150-450) L 11/18/16 07:15 MPV 10 um3 (7.4-10.4) 11/18/16 07:15 Neut % (Auto) 77.3 % (38-83) 11/18/16 07:15 Lymph % (Auto) 11.7 % (25-47) L 11/18/16 07:15 Kane % (Auto) 10.4 % (1-9) H 11/18/16 07:15 Eos % (Auto) 0.4 % (0-6) 11/18/16 07:15 Baso % (Auto) 0.2 % (0-2) 11/18/16 07:15 Absolute Neuts (auto) 6.9 10^3/ul (1.5-7.7) 11/18/16 07:15 Absolute Lymphs (auto) 1.0 10^3/ul (1.0-4.8) 11/18/16 07:15 Absolute Monos (auto) 0.9 10^3/ul (0-0.8) H 11/18/16 07:15 Absolute Eos (auto) 0 10^3/ul (0-0.6) 11/18/16 07:15 Absolute Basos (auto) 0 10^3/ul (0-0.2) 11/18/16 07:15 Absolute Nucleated RBC 0 10^3/ul 11/18/16 07:15 Nucleated RBC % 0 11/18/16 07:15 ESR 65 mm/Hr (0-14) H 11/17/16 05:48 Hem Pathologist Commnt 11/17/16 05:48 INR (Anticoag Therapy) 1.10 (0.89-1.11) 11/16/16 05:14 APTT 30.2 seconds (26.0-36.3) 11/16/16 05:14 Sodium 138 mmol/L (133-145) 11/18/16 07:15 Potassium 3.9 mmol/L (3.5-5.0) 11/18/16 07:15 Chloride 108 mmol/L (101-111) 11/18/16 07:15 Carbon Dioxide 26 mmol/L (22-32) 11/18/16 07:15 Anion Gap 4 mmol/L (2-11) 11/18/16 07:15 BUN 16 mg/dL (6-24) 11/18/16 07:15 Creatinine 1.07 mg/dL (0.67-1.17) 11/18/16 07:15 Est GFR ( Amer) 95.3 (>60) 11/18/16 07:15 Est GFR (Non-Af Amer) 74.1 (>60) 11/18/16 07:15 BUN/Creatinine Ratio 15.0 (8-20) 11/18/16 07:15 Glucose 96 mg/dL (70-100) 11/18/16 07:15 Hemoglobin A1c 5.7 % (Less than 6.0) 11/16/16 05:14 Calcium 8.1 mg/dL (8.6-10.3) L 11/18/16 07:15 Total Bilirubin 1.20 mg/dL (0.2-1.0) H 11/16/16 05:14 AST 38 U/L (13-39) 11/16/16 05:14 ALT 27 U/L (7-52) 11/16/16 05:14 Alkaline Phosphatase 65 U/L (34-104) 11/16/16 05:14 C-Reactive Protein 182.73 mg/L (< 5.00) H 11/18/16 07:15 Total Protein 6.3 g/dL (6.4-8.9) L 11/16/16 05:14 Albumin 3.3 g/dL (3.2-5.2) 11/16/16 05:14 Globulin 3.0 g/dL (2-4) 11/16/16 05:14 Albumin/Globulin Ratio 1.1 (1-3) 11/16/16 05:14 Vancomycin Trough 11.5 mcg/mL 11/17/16 09:23 incision:c/d/i; drain intact with about 50 cc PE:NVI Assessment: s/p arthroscopic I&d left knee x2 Plan: 1) Continue IV Abx per ID 2) Continue DVT prophylaxis 3) PT/OT-WBAT 4) hospitalist co-managing <Magnolia Gomez - Last Filed: 11/19/16 07:13> - Progress Note SOAP: Subjective: Significantly improved since prior to 2nd washout. No pain resting in bed. Walked with PT without significant pain. Objective: LLE: - dressing c/d/i - only minimal pain c PROM 5-60 degrees of flexion - NVID RLE: - decreased erythema foot and ankle; no TTP, decreased swelling, no TTP of toes Selected Entries 11/19/16 07:46 Temperature 98.0 F Pulse Rate 73 Respiratory 16 Rate Blood Pressure 157/74 (mmHg) O2 Sat by Pulse 96 Oximetry Laboratory Tests 11/17/16 11/18/16 11/19/16 05:48 07:15 07:59 WBC 8.9 C-Reactive Protein 227.78 H 182.73 H 11/19/16 07:59 WBC C-Reactive Protein 133.89 H X-ray L knee- no significant degenerative changes, drain in place; no bony erosion X-ray R ankle- hardware in place distal tibia, no degenerative changes ankle joint; no bony erosion Assessment: POD 1, 3 L knee I&D, Group G strep, R foot and ankle cellulitis Plan: - PT WBAT, strengthening LLE - IV abx - heparin subQ <Geovanni Trejo - Last Filed: 11/19/16 11:21>
[2016-11-19 08:21] LABS: Hematocrit 38 % (42-52); Hemoglobin 12.7 g/dl (14.0-18.0); Mean Corpuscular HGB Conc 33 g/dl (31-36); Mean Corpuscular Hemoglobin 27 pg (27-31); Mean Corpuscular Volume 81 fL (80-94); Mean Platelet Volume 9 um3 (7.4-10.4); Red Blood Count 4.68 10^6/ul (4.0-5.4); Red Cell Distribution Width 14 % (10.5-15); White Blood Count 8.9 10^3/ul (3.5-10.8)
[2016-11-19 08:30] LABS: BUN/Creatinine Ratio 21.1 (8-20); C Reactive Protein 133.89 mg/L (< 5.00); Calcium 8.2 mg/dL (8.6-10.3); EGFR African American 116.3 (>60); EGFR Non-African American 90.4 (>60); Potassium 3.9 mmol/L (3.5-5.0)
[2016-11-19] MEDS: Ketorolac INJ* 15 MG/ML 1 ML VIAL IV PUSH PRN ×3 (09:10→22:15)
--- NOTE | 2016-11-19 09:46 | RAD ---
Indication: Left knee pain, infection and overlying cellulitis 4 views of the left knee demonstrates drainage catheter in the left knee suprapatellar bursa. No fracture or erosions are noted. IMPRESSION: Drainage catheters are noted in the suprapatellar bursa.
--- NOTE | 2016-11-19 09:52 | RAD ---
Indication: Right ankle internal fixation. 3 views of the right ankle demonstrates internal fixation of the distal tibia with a plate and screws. No obvious hardware failure is noted. Ankle mortise is intact. IMPRESSION: Internal fixation distal tibia.
[2016-11-19 15:20] LABS: Lyme Disease IgG Ab WB Negative (Negative)
[2016-11-19] MEDS ORDERED: Furosemide IV* 10 MG/ML 2 ML VIAL (20 MG) IV ONE (15:25)
--- NOTE | 2016-11-19 15:25 | PN ---
Subjective Date of Service: 11/19/16 Interval History: HOSPITALIST PROGRESS NOTE Patient seen and examined at bedside. He feels better today. Pain is much improved, able to ambulate with a walker. Frustrated he needs to stay in the Hospital for IV antibiotics. Family History: Unchanged from Admission Social History: Unchanged from Admission Past Medical History: Unchanged from Admission Objective Active Medications: Acetaminophen (Tylenol Tab*) 650 mg PO Q4H PRN PRN Reason: Pain or fever Last Admin: 11/16/16 23:42 Dose: 650 mg Heparin Sodium (Porcine) (Heparin Vial(*)) 5,000 units SUBCUT Q8HR [facility] Last Admin: 11/19/16 13:59 Dose: 5,000 units Ceftriaxone Sodium 1,000 mg/ (Sodium Chloride) 50 mls @ 200 mls/hr IVPB 2000 [facility] Last Admin: 11/18/16 20:09 Dose: 200 mls/hr Ketorolac Tromethamine (Toradol Inj*) 15 mg IV PUSH Q6H PRN PRN Reason: PAIN Last Admin: 11/19/16 09:10 Dose: 15 mg Vital Signs 11/19/16 11/19/16 11/19/16 00:00 03:57 07:46 Temperature 98.3 F 98.0 F Pulse Rate 72 73 Respiratory 16 16 Rate Blood Pressure 175/96 157/74 (mmHg) O2 Sat by Pulse 97 96 96 Oximetry 11/19/16 08:00 Temperature Pulse Rate Respiratory 16 Rate Blood Pressure (mmHg) O2 Sat by Pulse 96 Oximetry Oxygen Devices in Use Now: None Appearance: Pleasant gentleman sitting up in a recliner in [facility]. Eyes: No Scleral Icterus Ears/Nose/Mouth/Throat: Mucous Membranes Moist Neck: Trachea Midline Respiratory: Symmetrical Chest Expansion and Respiratory Effort, Clear to Auscultation Cardiovascular: NL Sounds; No Murmurs; No JVD, RRR Extremities: - - RLE edema, erythema is resolved. Left leg is GISELLA wrapped Neurological: Alert and Oriented x 3, NL Muscle Strength and Tone Lines/Tubes/Other Access: Clean, Dry and Intact Peripheral IV Nutrition: Taking PO's Result Diagrams: 11/19/16 07:59 11/19/16 07:59 Assess/Plan/Problems-Billing Assessment: Mr. Kent is a 46yo M with PMH of obesity who presented to ED at [facility] with c/o right foot/left knee edema and pain, found to have right foot cellulitis and possible left knee septic arthritis. - Patient Problems (1) Sepsis Comment: - Met sepsis criteria with fever and tachycardia. - Source is right foot cellulitis and left knee septic arthritis. (2) Arthritis of left knee Comment: - S/p left knee wash out with Dr. Trejo on 11/16/16 and 11/18/16. - Culture growing group G streptococcus. - Continue Ceftriaxone - will need 4-6 weeks of treatment. (3) Cellulitis of right foot Comment: - Continue Ceftriaxone. - ID consult appreciated. (4) Obstructive sleep apnea Comment: - Patient was noted to snore and have periods of apnea while sleeping. - Overnight oxymetry confirms hypoxia. - Will need supplemental O2 while sleeping and sleep study as outpatient. (5) Morbid obesity Comment: - Would benefit of weight loss plan after discharge. (6) DVT prophylaxis Comment: - SQ heparin. (7) Full code status Status and Disposition: Inpatient.
[2016-11-19] MEDS: cefTRIAXone VIAL(*) 1,000 MG in NS 0.9% 50 ML* 50 ML IVPB SCH (21:02)
[2016-11-20] MEDS: Heparin VIAL(*) 5000 UNITS/ML VIAL (FIVE THOUSAND) SUBCUT SCH ×3 (06:17→22:16)
[2016-11-20] MEDS: Ketorolac INJ* 15 MG/ML 1 ML VIAL IV PUSH PRN ×3 (06:27→20:06)
[2016-11-20 06:34] LABS: BUN/Creatinine Ratio 16.5 (8-20); Calcium 8.5 mg/dL (8.6-10.3); EGFR African American 99.6 (>60); EGFR Non-African American 77.4 (>60); Potassium 3.8 mmol/L (3.5-5.0)
[2016-11-20] MEDS ORDERED: Furosemide IV* 10 MG/ML VIAL (40 MG) IV ONE (07:18)
--- NOTE | 2016-11-20 09:08 | PN ---
Progress Note - Progress Note SOAP: Subjective: []Patient seen at bedside. Pain well managed. Feels improvement in left knee and right foot. Objective: [] Vital Signs Temp 98.3 F 11/20/16 03:48 Pulse 71 11/20/16 03:48 Resp 24 11/20/16 03:48 BP 165/83 11/20/16 03:48 Pulse Ox 97 11/20/16 03:48 Intake & Output 11/19/16 11/20/16 11/20/16 18:59 06:59 18:59 Intake Total 600 525 Output Total 50 750 Balance 550 -225 Intake: IV Fluids 50 30 ABX - CEFAZOLIN 50 NS (0.9%) 30 IVPB 55 ABX - CEFTRIAXONE 55 Oral 550 440 Output: SHERRY #1 50 50 Urine 700 Other: Estimated Void Medium # Bowel Movements 0 # Voids 2 3 Laboratory Results - last 24 hr 11/16/16 11/20/16 05:14 06:03 Sodium 137 Potassium 3.8 Chloride 102 Carbon Dioxide 30 Anion Gap 5 BUN 17 Creatinine 1.03 Est GFR ( Amer) 99.6 Est GFR (Non-Af Amer) 77.4 BUN/Creatinine Ratio 16.5 Glucose 109 H Calcium 8.5 L Lyme IgG (Western Blot) Negative Lyme IgG Bands Present p66, p41, Lyme IgM (Western Blot) Negative Lyme IgM Bands Present No bands detected Lyme Disease Interpret See comment Left knee GISELLA dry and intact, SHERRY drained of 50cc this am, moderate serosanguenous drainage filling grenade right foot swelling and cellulitis improving calves are non tender and soft bilaterally Assessment: []s/p left knee arthroscopic washout X2, Group G strep, POD #2 Plan: []IV ceftriaxone per ID continue SHERRY drain- still moderate drainage WBAT LLE
--- NOTE | 2016-11-20 10:03 | PN ---
Progress Note - Progress Note SOAP: Subjective: DOS: 11/20/16 CC: septic knee HPI: 46 year old man with right foot cellulitis and left knee severe pain, s/p arthroscopic I&D x2. Left knee pain continues to improve. No fever, rash, or diarrhea. The right foot redness is resolved, swelling almost gone. Objective: [] Vital Signs Temp 36.8 C 11/20/16 03:48 Pulse 71 11/20/16 03:48 Resp 24 11/20/16 03:48 BP 165/83 11/20/16 03:48 Pulse Ox 97 11/20/16 03:48 Intake & Output 11/19/16 11/20/16 11/20/16 18:59 06:59 18:59 Intake Total 600 525 Output Total 50 750 Balance 550 -225 Intake: IV Fluids 50 30 ABX - CEFAZOLIN 50 NS (0.9%) 30 IVPB 55 ABX - CEFTRIAXONE 55 Oral 550 440 Output: SHERRY #1 50 50 Urine 700 Other: Estimated Void Medium # Bowel Movements 0 # Voids 2 3 Gen:Awake, no distress Neck:supple HEENT:PERRL, MMM Heart:RRR no murmur Lungs:CTA BL Abd:+BS NTND soft MSK: R foot mild erythema, no fluctuance; 2 and 3 toe edema, no wound or erythema Left knee wrapped Skin: acanthosis in axilla BL Laboratory Results - last 24 hr 11/16/16 11/20/16 05:14 06:03 Sodium 137 Potassium 3.8 Chloride 102 Carbon Dioxide 30 Anion Gap 5 BUN 17 Creatinine 1.03 Est GFR ( Amer) 99.6 Est GFR (Non-Af Amer) 77.4 BUN/Creatinine Ratio 16.5 Glucose 109 H Calcium 8.5 L Lyme IgG (Western Blot) Negative Lyme IgG Bands Present p66, p41, Lyme IgM (Western Blot) Negative Lyme IgM Bands Present No bands detected Lyme Disease Interpret See comment Microbiology 11/16/16 17:46 Anaerobic Culture - Final Wound - Knee Left 11/16/16 17:46 Skin and Soft Tissue MRSA/MSSA (PCR - Final Knee Left Mrsa Negative S.aureus Negative Gram Stain - Final Wound Culture - Final Strep Dysgalac (Grp C)/Grp G 11/16/16 05:14 Aerobic Blood Culture - Preliminary Blood Venous No Growth Day 4 Anaerobic Blood Culture - Preliminary No Growth Day 4 Blood Culture - Final 11/16/16 05:08 Aerobic Blood Culture - Preliminary Blood Venous No Growth Day 4 Anaerobic Blood Culture - Preliminary No Growth Day 4 Blood Culture - Final 11/18/16 11:43 Gram Stain - Final Knee Left Wound Culture - Preliminary Strep Dysgalactiae (Grp C) 11/18/16 11:43 Anaerobic Culture - Preliminary Wound - Knee Left Assessment: 1. Grp G Strep septic left knee, BC neg but due to hematogenous spread from his right foot cellulitis which is improving 2. Grp C Strep right foot cellulitis, improving 3. obesity 4. acanthosis Plan: 1. ceftriaxone 2 gm daily, 30 more days, PICC ordered 2. Hgb a1c DC planning to eval for medicaid
--- NOTE | 2016-11-20 15:33 | PN ---
Subjective Date of Service: 11/20/16 Interval History: HOSPITALIST PROGRESS NOTE Patient seen and examined at bedside. He feels much better today, pain is well controlled. Family History: Unchanged from Admission Social History: Unchanged from Admission Past Medical History: Unchanged from Admission Objective Active Medications: Acetaminophen (Tylenol Tab*) 650 mg PO Q4H PRN PRN Reason: Pain or fever Last Admin: 11/16/16 23:42 Dose: 650 mg Heparin Sodium (Porcine) (Heparin Vial(*)) 5,000 units SUBCUT Q8HR [facility] Last Admin: 11/20/16 14:17 Dose: 5,000 units Ceftriaxone Sodium 2,000 mg/ (Sodium Chloride) 100 mls @ 200 mls/hr IVPB 2000 [facility] Ketorolac Tromethamine (Toradol Inj*) 15 mg IV PUSH Q6H PRN PRN Reason: PAIN Last Admin: 11/20/16 13:11 Dose: 15 mg Vital Signs 11/20/16 11/20/16 11/20/16 03:48 07:33 08:00 Temperature 98.3 F 98.1 F Pulse Rate 71 67 Respiratory 24 18 18 Rate Blood Pressure 165/83 160/96 (mmHg) O2 Sat by Pulse 97 97 97 Oximetry 11/20/16 12:03 Temperature 98.6 F Pulse Rate 70 Respiratory 18 Rate Blood Pressure 150/94 (mmHg) O2 Sat by Pulse 96 Oximetry Oxygen Devices in Use Now: None Appearance: Pleasant gentleman lying in recliner in [place]. Eyes: No Scleral Icterus Ears/Nose/Mouth/Throat: Mucous Membranes Moist Neck: Trachea Midline Respiratory: Symmetrical Chest Expansion and Respiratory Effort, Clear to Auscultation Cardiovascular: NL Sounds; No Murmurs; No JVD, RRR Extremities: - - RLE edema is improved and erythema is resolved, LLE armando wrapped with cryo unit in place Neurological: Alert and Oriented x 3, NL Muscle Strength and Tone Lines/Tubes/Other Access: Clean, Dry and Intact Peripheral IV Nutrition: Taking PO's Result Diagrams: 11/19/16 07:59 11/20/16 06:03 Assess/Plan/Problems-Billing Assessment: Mr. Kent is a 46yo M with PMH of obesity who presented to ED at [facility] with c/o right foot/left knee edema and pain, found to have right foot cellulitis and possible left knee septic arthritis. - Patient Problems (1) Sepsis Comment: - Met sepsis criteria with fever and tachycardia. - Source is right foot cellulitis and left knee septic arthritis. (2) Arthritis of left knee Comment: - S/p left knee wash out with Dr. Trejo on 11/16/16 and 11/18/16. - Culture growing group G streptococcus. - ID input appreciated - plan for Ceftriaxone 2g/day for 4 more weeks. (3) Cellulitis of right foot Comment: - Continue Ceftriaxone. - ID consult appreciated. (4) Obstructive sleep apnea Comment: - Patient was noted to snore and have periods of apnea while sleeping. - Overnight oxymetry confirms hypoxia. - Will need supplemental O2 while sleeping and sleep study as outpatient. (5) Morbid obesity Comment: - Would benefit of weight loss plan after discharge. (6) DVT prophylaxis Comment: - SQ heparin. (7) Full code status Status and Disposition: Inpatient.
[2016-11-21] MEDS: Ketorolac INJ* 15 MG/ML 1 ML VIAL IV PUSH PRN ×4 (02:55→22:45)
[2016-11-21] MEDS: Heparin VIAL(*) 5000 UNITS/ML VIAL (FIVE THOUSAND) SUBCUT SCH ×3 (06:19→22:45)
[2016-11-21] MEDS ORDERED: Scopolomine PATCH Remove* 1 NOTE MISC PATCH OFF ONE (12:55)
--- NOTE | 2016-11-21 13:34 | PN ---
Subjective Date of Service: 11/21/16 Interval History: HOSPITALIST PROGRESS NOTE Patient seen and examined at bedside. C/o left knee pain. Concerned about issues going on at home. Family History: Unchanged from Admission Social History: Unchanged from Admission Past Medical History: Unchanged from Admission Objective Active Medications: Acetaminophen (Tylenol Tab*) 650 mg PO Q4H PRN PRN Reason: Pain or fever Last Admin: 11/16/16 23:42 Dose: 650 mg Heparin Sodium (Porcine) (Heparin Vial(*)) 5,000 units SUBCUT Q8HR [facility] Last Admin: 11/21/16 06:19 Dose: 5,000 units Heparin Sodium (Porcine) (Heparin Flush Picc/Ml/Cvc(*)) 0 ml IV FLUSH 0600, 1800 [facility] PRN Reason: Protocol Last Admin: 11/20/16 22:17 Dose: 1 ml Ceftriaxone Sodium 2,000 mg/ (Sodium Chloride) 100 mls @ 200 mls/hr IVPB Q24H [facility] Ketorolac Tromethamine (Toradol Inj*) 15 mg IV PUSH Q6H PRN PRN Reason: PAIN Last Admin: 11/21/16 09:22 Dose: 15 mg Vital Signs 11/21/16 11/21/16 11/21/16 03:38 07:49 08:00 Temperature 99.7 F 98.0 F Pulse Rate 76 76 Respiratory 16 20 16 Rate Blood Pressure 164/93 174/97 (mmHg) O2 Sat by Pulse 95 97 Oximetry 11/21/16 08:22 Temperature Pulse Rate Respiratory Rate Blood Pressure (mmHg) O2 Sat by Pulse 97 Oximetry Oxygen Devices in Use Now: None Appearance: Pleasant gentleman lying in recliner in [place]. Eyes: No Scleral Icterus Ears/Nose/Mouth/Throat: Mucous Membranes Moist Neck: Trachea Midline Respiratory: Symmetrical Chest Expansion and Respiratory Effort, Clear to Auscultation Cardiovascular: NL Sounds; No Murmurs; No JVD, RRR Neurological: Alert and Oriented x 3, NL Muscle Strength and Tone Lines/Tubes/Other Access: Clean, Dry and Intact PICC Line Nutrition: Taking PO's Result Diagrams: 11/19/16 07:59 11/20/16 06:03 Assess/Plan/Problems-Billing Assessment: Mr. Kent is a 46yo M with PMH of obesity who presented to ED at [facility] with c/o right foot/left knee edema and pain, found to have right foot cellulitis and possible left knee septic arthritis. - Patient Problems (1) Sepsis Comment: - Met sepsis criteria with fever and tachycardia. - Source is right foot cellulitis and left knee septic arthritis. (2) Arthritis of left knee Comment: - S/p left knee wash out with Dr. Trejo on 11/16/16 and 11/18/16. - Culture growing group G streptococcus. - ID input appreciated - plan for Ceftriaxone 2g/day for 4 more weeks. (3) Cellulitis of right foot Comment: - Continue Ceftriaxone. - ID consult appreciated. (4) Obstructive sleep apnea Comment: - Patient was noted to snore and have periods of apnea while sleeping. - Overnight oxymetry confirms hypoxia. - Will need supplemental O2 while sleeping and sleep study as outpatient. (5) Morbid obesity Comment: - Would benefit of weight loss plan after discharge. (6) DVT prophylaxis Comment: - SQ heparin. (7) Full code status Status and Disposition: Inpatient.
--- NOTE | 2016-11-21 14:13 | PN ---
Progress Note - Progress Note SOAP: Subjective: []Patient seen OOB in chair, hoping that he will be discharged home soon. Knee better overall since 2nd washout but sore today. Objective: [] Vital Signs Temp 98.0 F 11/21/16 07:49 Pulse 76 11/21/16 07:49 Resp 16 11/21/16 08:00 BP 174/97 11/21/16 07:49 Pulse Ox 97 11/21/16 08:22 Intake & Output 11/20/16 11/21/16 11/21/16 18:59 06:59 18:59 Intake Total 700 88 600 Output Total 30 795 Balance 670 -707 600 Intake: IV Fluids 30 NS (0.9%) 30 IVPB 58 ABX - CEFTRIAXONE 58 Oral 700 0 600 Output: SHERRY #1 30 20 Urine 775 Other: Estimated Void Medium # Bowel Movements 0 # Voids 1 0 2 Microbiology 11/18/16 11:43 Anaerobic Culture - Preliminary Wound - Knee Left 11/18/16 11:43 Gram Stain - Final Knee Left Wound Culture - Final Strep Dysgalac (Grp C)/Grp G 11/16/16 05:14 Aerobic Blood Culture - Final Blood Venous No Growth Day 5 Anaerobic Blood Culture - Final No Growth Day 5 Blood Culture - Final 11/16/16 05:08 Aerobic Blood Culture - Final Blood Venous No Growth Day 5 Anaerobic Blood Culture - Final No Growth Day 5 Blood Culture - Final 11/16/16 17:46 Anaerobic Culture - Final Wound - Knee Left 11/16/16 17:46 Skin and Soft Tissue MRSA/MSSA (PCR - Final Knee Left Mrsa Negative S.aureus Negative Gram Stain - Final Wound Culture - Final Strep Dysgalac (Grp C)/Grp G Left knee GISELLA wraps taken down, no erythema or warmth to knee, old drainage on web roll, new GISELLA applied calf NT and soft +DF/PF left ankle sensation intact SHERRY drain with about 40cc in grenade, 50cc reported drained 11/21 thus far Assessment: []s/p arthroscopic washout X2, septic left knee joint, Gp G strep POD# 3 Plan: []IV ceftriaxone x 4 weeks, arrangements for outpatient therapy being made Drain out per Dr. Trejo
--- NOTE | 2016-11-21 19:09 | PN ---
Progress Note - Progress Note SOAP: Subjective: Patient reports worse pain yesterday versus Sunday, but plateau since then. He has been active with PT, using walker. Only taking Toradol IV q 6 hrs. No narcotics. Objective: LLE: - soft tissue swelling mild-moderate - no clear severe effusion - drain in place with serosanguinous drainage - dressing over drain sites has dried serosanguinous drainage - some drainage from skin hole from 1st surgery - inc c/d/i - PROM/AROM 10-70. Inconsistent pain with extremes (reports that his baseline ROM is ~ 0-90) - I watched patient ambulate with walker with some antalgia, but no severe pain SHERRY: 50 cc in 12 hours Selected Entries 11/21/16 11/21/16 07:49 15:44 Temperature 98.0 F Pulse Rate 93 Respiratory 20 Rate Blood Pressure 174/97 187/89 (mmHg) Blood Pressure 116 Mean O2 Sat by Pulse 97 Oximetry Assessment: POD 3,5 arthroscopic I&D L knee, Group G Strep from R foot & ankle cellulitis Plan: - I pulled the SHERRY drain given POD 3 and output slowing - Continue IV Ceftriaxone, ID input - Continue IV Toradol - HList input on BP elevation - DVT prophy with heaprin SQ - CRP daily in AM. I want to assure myself is reduced compared with last measure on 11/19/16 - I dislike how the patient feels that his pain increased and then plateau-ed. NPO p midnight in case he does not improve more by tomorrow and I would consider repeat I&D - Dispo: patient needs to be comfortable walking and with 0-70 ROM for discharge home to be considered for discharge
[2016-11-22] MEDS: Heparin VIAL(*) 5000 UNITS/ML VIAL (FIVE THOUSAND) SUBCUT SCH ×3 (05:24→21:40)
[2016-11-22] MEDS: Ketorolac INJ* 15 MG/ML 1 ML VIAL IV PUSH PRN ×2 (08:12→16:47)
[2016-11-22] MEDS ORDERED: oxyCODONE TAB* 5 MG TAB PO PRN (08:31)
[2016-11-22] MEDS: amLODIPine TAB* 5 MG PO SCH (08:52)
--- NOTE | 2016-11-22 12:02 | PN ---
Progress Note - Progress Note SOAP: Subjective: []Patient seen OOB in chair. Did well with therapy and continues to make progress. Objective: [] Vital Signs Temp 98.1 F 11/22/16 11:04 Pulse 93 11/22/16 11:04 Resp 18 11/22/16 11:04 BP 150/86 11/22/16 11:04 Pulse Ox 96 11/22/16 11:04 Intake & Output 11/21/16 11/22/16 11/22/16 18:59 06:59 18:59 Intake Total 1260 1120 Output Total 600 Balance 1260 520 Intake: IVPB 110 ABX - CEFTRIAXONE 110 Oral 1150 1120 Output: Urine 600 Other: Estimated Void Medium Medium # Bowel Movements 0 # Voids 2 3 Laboratory Results - last 24 hr 11/22/16 05:35 C-Reactive Protein 71.66 H Microbiology 11/18/16 11:43 Anaerobic Culture - Final Wound - Knee Left 11/18/16 11:43 Gram Stain - Final Knee Left Wound Culture - Final Strep Dysgalac (Grp C)/Grp G 11/16/16 05:14 Aerobic Blood Culture - Final Blood Venous No Growth Day 5 Anaerobic Blood Culture - Final No Growth Day 5 Blood Culture - Final 11/16/16 05:08 Aerobic Blood Culture - Final Blood Venous No Growth Day 5 Anaerobic Blood Culture - Final No Growth Day 5 Blood Culture - Final 11/16/16 17:46 Anaerobic Culture - Final Wound - Knee Left 11/16/16 17:46 Skin and Soft Tissue MRSA/MSSA (PCR - Final Knee Left Mrsa Negative S.aureus Negative Gram Stain - Final Wound Culture - Final Strep Dysgalac (Grp C)/Grp G Left knee dressing changed by Dr. Trejo this am calf NT and soft +DF/PF left ankle Assessment: []s/p left knee arthroscopic washout X2 for septic arthritis, Group G strep Plan: []Continue to monitor for improvement, will hold on repeat washout at this point per Dr. Trejo PT WBAT Possible discharge home tomorrow on daily IV therapy for 6 weeks
--- NOTE | 2016-11-22 13:36 | PN ---
Subjective Date of Service: 11/22/16 Interval History: HOSPITALIST PROGRESS NOTE Patient seen and examined at bedside. He c/o more left knee pain today. Family History: Unchanged from Admission Social History: Unchanged from Admission Past Medical History: Unchanged from Admission Objective Active Medications: Acetaminophen (Tylenol Tab*) 650 mg PO Q4H PRN PRN Reason: Pain or fever Last Admin: 11/16/16 23:42 Dose: 650 mg Amlodipine Besylate (Norvasc Tab*) 5 mg PO DAILY [facility] Last Admin: 11/22/16 08:52 Dose: 5 mg Heparin Sodium (Porcine) (Heparin Vial(*)) 5,000 units SUBCUT Q8HR [facility] Last Admin: 11/22/16 12:51 Dose: 5,000 units Heparin Sodium (Porcine) (Heparin Flush Picc/Ml/Cvc(*)) 0 ml IV FLUSH 0600, 1800 [facility] PRN Reason: Protocol Last Admin: 11/22/16 05:24 Dose: 1 ml Ceftriaxone Sodium 2,000 mg/ (Sodium Chloride) 100 mls @ 200 mls/hr IVPB Q24H [facility] Last Admin: 11/21/16 17:29 Dose: 200 mls/hr Ketorolac Tromethamine (Toradol Inj*) 15 mg IV PUSH Q6H PRN PRN Reason: PAIN Last Admin: 11/22/16 08:12 Dose: 15 mg Oxycodone HCl (Roxycodone Tab*) 5 mg PO Q6H PRN PRN Reason: SEVERE PAIN Vital Signs 11/22/16 11/22/16 07:25 11:04 Temperature 99.6 F 98.1 F Pulse Rate 81 93 Respiratory 20 18 Rate Blood Pressure 169/93 150/86 (mmHg) O2 Sat by Pulse 94 96 Oximetry Oxygen Devices in Use Now: None Appearance: Pleasant obese gentleman sitting up in a recliner in NAD. Eyes: No Scleral Icterus Ears/Nose/Mouth/Throat: Mucous Membranes Moist Neck: Trachea Midline Extremities: - - SHERRY drain was removed from left knee and knee is now only GISELLA wrapped Neurological: Alert and Oriented x 3, NL Muscle Strength and Tone Lines/Tubes/Other Access: Clean, Dry and Intact PICC Line Nutrition: Taking PO's Result Diagrams: 11/19/16 07:59 11/20/16 06:03 Assess/Plan/Problems-Billing Assessment: Mr. Kent is a 46yo M with PMH of obesity who presented to ED at [facility] with c/o right foot/left knee edema and pain, found to have right foot cellulitis and possible left knee septic arthritis. - Patient Problems (1) Sepsis Comment: - Met sepsis criteria with fever and tachycardia. - Source is right foot cellulitis and left knee septic arthritis. (2) Arthritis of left knee Comment: - S/p left knee wash out with Dr. Trejo on 11/16/16 and 11/18/16. - Culture grew group G streptococcus. - ID input appreciated - plan for Ceftriaxone 2g/day for 4 more weeks. - Dr. Trejo is concerned with the worsening knee pain. Will continue to monitor in the hospital, and if worsens, may need to return to OR. (3) Cellulitis of right foot Comment: - Continue Ceftriaxone. - ID consult appreciated. (4) Obstructive sleep apnea Comment: - Patient was noted to snore and have periods of apnea while sleeping. - Overnight oxymetry confirms hypoxia. - Will need supplemental O2 while sleeping and sleep study as outpatient. (5) Morbid obesity Comment: - Would benefit of weight loss plan after discharge. (6) HTN (hypertension) Comment: - BP remains elevated - initial plan was for monitoring as outpatient with Dr. Pichardo, but heis numbers continue to trend up. - Start amlodipine. (7) DVT prophylaxis Comment: - SQ heparin. (8) Full code status Status and Disposition: Inpatient.
[2016-11-23] MEDS: Ketorolac INJ* 15 MG/ML 1 ML VIAL IV PUSH PRN ×3 (00:24→15:39)
[2016-11-23] MEDS: Heparin VIAL(*) 5000 UNITS/ML VIAL (FIVE THOUSAND) SUBCUT SCH ×2 (06:11→16:51)
[2016-11-23] MEDS: amLODIPine TAB* 5 MG PO SCH (08:45)
--- NOTE | 2016-11-23 15:11 | PN ---
Progress Note - Progress Note SOAP: Subjective: []Patient seen at bedside. States that he feel his knee continues to improve. Hoping to be discharged today but was told that is per Dr. Trejo. Has IV Ceftriaxone infusions set up at [place]. Objective: [] Vital Signs Temp 99.2 F 11/23/16 11:55 Pulse 81 11/23/16 11:55 Resp 17 11/23/16 11:55 BP 150/79 11/23/16 11:55 Pulse Ox 98 11/23/16 11:55 Intake & Output 11/22/16 11/23/16 11/23/16 18:59 06:59 18:59 Intake Total 960 880 990 Output Total 240 Balance 960 640 990 Intake: IV Fluids 0 ABX - CEFAZOLIN 0 Oral 960 880 990 Output: Urine 240 Other: Estimated Void Medium # Bowel Movements 0 # Voids 1 Laboratory Results - last 24 hr 11/23/16 06:30 C-Reactive Protein 82.16 H left knee dressings removed, completely dry Knee with mild warmth and still moderately swollen, no erythema ROM 5-75 degrees in bed calf NT neuro intact new 4x4s and GISELLA applied Assessment: []s/p arthroscopic washout for group G strep septic arthritis X2 POD #5 Plan: []Discharge when ok with Dr. Trejo continue daily Ceftriaxone for [address] Ackerman's recommendations Follow up in 1 week, Dr. Trejo
[2016-11-23 15:39] VITALS: BP 145/86
--- NOTE | 2016-11-24 01:38 | DS ---
DISCHARGE SUMMARY: DATE OF ADMISSION: 11/16/16 DATE OF DISCHARGE: 11/23/16 PRIMARY CARE PROVIDER: Dr. Geovanni Pichardo. DISCHARGE DIAGNOSES: 1. Left septic knee arthritis. 2. Right foot cellulitis. 3. Hypertension, new diagnosis. 4. Obstructive sleep apnea with documented hypoxemia at night. SECONDARY DIAGNOSES: 1. Obesity. 2. History of small bowel obstruction in the past. 3. Appendectomy. 4. Hernia repair. 5. History of ORIF of the right leg. MEDICATIONS AT DISCHARGE: Include: 1. Tylenol on p.r.n. basis. 2. Amlodipine 5 mg daily. 3. The patient also prescribed ceftriaxone 2 g IV every 24 hours for the remaining 27 days. In addition, the patient was recommended to follow up with Dr. Mart, crusher feeder for a sleep study. Dr. Pichardo, the patient is asked to follow up with his primary care provider in approximately [address] Trejo's office is going to contact the patient to schedule an appointment within the next 4 to 7 days. The patient is to present to [facility] for daily ceftriaxone infusion as previously mentioned and instructed the patient. Wound dressings to the left knee. The patient is recommended to cover with clean dry gauze and rub with Scott bandage and change the dressings daily. CONSULTATIONS DURING THE HOSPITAL STAYING: Included: 1. Dr. Trejo from Orthopedic Surgery. 2. Dr. Ackerman, Infectious Diseases. LABORATORY DATA PRIOR TO DISCHARGE: Included, On 11/20/16, sodium 137, potassium 3.8, chloride 102, carbon dioxide 30, BUN 17, creatinine 1.03. On , white blood cell count was 8.9, hemoglobin 12.7, hematocrit 38 and platelets 183. Microbiology studies were positive for strep group C and streptococcus dysgalactiae. Surgeries performed during the hospital stay included washout of the left knee performed by Dr. Trejo x2 on 11/16/16 and 11/18/16. HOSPITALIZATION COURSE: Bhavesh Kent is a 46-year-old obese male who presented to the hospital on 11/16/16 after transfer from [facility]. He had right foot cellulitis and was also noted to have left knee septic arthritis. A washout of the knee was performed by Dr. Trejo who was officially consulted from Orthopedic Surgery on 11/16/16. A repeat washout was performed on . The patient's microbiology studies were positive for group G streptococcus , cultures positive from the washout of the left knee. The patient's blood cultures continued to be negative. It was thought that the patient had most likely a septic left knee as a consequence of hematogenous spread from the right foot cellulitis. The patient was treated with ceftriaxone and continues to improve. Recommendation per Dr. Ackerman is for the patient to continue ceftriaxone for a total of 30 more days and that recommendation was given to us on 11/20/16. The patient is today being discharged home with a recommendation to continue his IV antibiotics for a total of remaining 27 days. A PICC line was inserted in the right forearm and the patient will be coming to the [facility] for the remaining IV antibiotic treatment. We will schedule an appointment with Dr. Trejo next week for a followup. Wound dressing recommendations are as above mentioned. In regards to the remaining patient's medical problem, the patient was noted to have significant obesity. An overnight pulse oximetry noted for the patient to be with oxygen saturation of below 89% at 40% of the time. That qualified for the patient to be on oxygen at home at night which was arranged at discharge. The patient also needs to have a dedicated sleep study with Pulmonology, which was recommended as above mentioned. In regards to the patient's hypertension, it was noted to be newly diagnosed and uncontrolled. The patient was placed on amlodipine with good results but may need titration of the medications as outpatient. PHYSICAL EXAM AT THE TIME OF DISCHARGE: Vital Signs: Blood pressure of 160/79 , heart rate of 81 and regular, respiratory rate 17, oxygen saturation 98% on room air, temperature of 99.2. General: The patient is a very pleasant 46-year-old male with the BMI of 42. The patient is in no acute distress. Alert, awake, oriented x3. HEENT: Atraumatic, normocephalic, Eyes: Pupils equal and reactive to light and accommodation. Oropharynx clear. Mucosa moist. Neck: Supple. No JVD, no bruits bilaterally. Cardiovascular: Regular rate and rhythm. No murmur. Respiratory: Clear to auscultation bilaterally. Abdomen: Soft, nontender. Bowel sounds present in all 4 quadrants. Extremities: There is trace bilateral pedal edema. Pulses +2 bilaterally. No clubbing or cyanosis. The left knee is Scott wrapped. The dressings were not removed during the evaluation since they already removed and evaluated by the orthopedic service today. Neuro Evaluation: Cranial nerves II through XII grossly intact. Motor strength is 5/5 bilaterally. Please also note that after discharge, the patient is recommended to follow up with Dr. Ackerman in approximately 1 to 2 weeks. Please note this is a short summary of the patient's hospital stay. Please refer to further medical records for details. TIME SPENT: Approximately 40 minutes was spent on the patient's discharge. CC: Dr. Geovanni Pichardo; Dr. Trejo; Dr. Ackerman; Dr. Mart* [id number]/CPS #: [id number] [facility]
== END 2016-11-23 19:00 | disposition home or self-care (01) | DRG 854 ==
LOC: MED 11-16 00:05
PROVIDERS: ADMIT Internal Medicine; ATTEND Internal Medicine
PROC: 0SBD4ZZ Excision of Left Knee Joint, Percutaneous Endoscopic Approach (ICD-10-PCS; principal; 2016-11-16 16:15)
PROC: 0SBD4ZZ Excision of Left Knee Joint, Percutaneous Endoscopic Approach (ICD-10-PCS; 2016-11-18)
PROC: 05H533Z Insertion of Infusion Device into Right Subclavian Vein, Percutaneous Approach (ICD-10-PCS; 2016-11-23)
DX: A41.9 Sepsis, unspecified organism (principal); M00.262 Other streptococcal arthritis, left knee; D69.6 Thrombocytopenia, unspecified; Z99.81 Dependence on supplemental oxygen; Z68.41 Body mass index [BMI] 40.0-44.9, adult; L03.115 Cellulitis of right lower limb; E66.01 Morbid (severe) obesity due to excess calories; Z82.49 Family history of ischemic heart disease and other diseases of the circulatory system; Z80.3 Family history of malignant neoplasm of breast; Z83.3 Family history of diabetes mellitus; M17.12 Unilateral primary osteoarthritis, left knee; R73.9 Hyperglycemia, unspecified; B95.4 Other streptococcus as the cause of diseases classified elsewhere; G47.33 Obstructive sleep apnea (adult) (pediatric); L83 Acanthosis nigricans; D64.9 Anemia, unspecified; M25.462 Effusion, left knee; R09.02 Hypoxemia; I10 Essential (primary) hypertension
CPT/HCPCS: 36415; 80048; 80053; 80202; 83036; 85025; 85060; 85610; 85652; 85730; 86140; 86617; 87040; 87070; 87073; 87077; 87205; 87640; 87641; 94760; 94762; A9270-GY; C1751; J0171; J0330; J0690; J0696; J0780; J1170; J1644; J1885; J1940; J2001; J2250; J2405; J2704; J3010; J3370